=== PATIENT | female | born 1950 | race Caucasian/White ===

== ENCOUNTER 2024-01-28 05:03 | Inpatient (IN) ==
--- NOTE | 2024-01-28 05:19 | Emergency Department Note ---
Impression & Plan Acute hypoxemic respiratory failure, Pneumonia due to 2019-nCoV, Acute hyponatremia, Acute pain of left hip, Hypomagnesemia ED Provider Note NAME: MARYURI CHIN AGE: 73 SEX: F : 1950 ARRIVES VIA: Ambulance INFORMANT: Patient, EMS report ED PROVIDER(S): Reg Maldonado MD CHIEF COMPLAINT: Shortness of breath, cough MEDICAL DECISION MAKING: Patient presents for the above. Patient with coarse sounds throughout. Patient reportedly had a temperature of 106 at home. Patient did have sepsis protocol is initiated along with empiric antibiotics Rocephin and azithromycin in light of the patient's respiratory symptoms. IV was established and blood work was obtained along with a chest x-ray. Patient with complaint of left hip pain so plain x-rays ordered of the left hip as well. Patient was ordered IV fluids and IV Ofirmev. Patient placed on BiPAP at to help given the patient's coarse breath sounds. Patient with a normal white count hemoglobin 11.3 with a normal platelet count. Kidney function is unremarkable hyponatremia and hypokalemia noted. Urine and serum osmolality ordered along with urine electrolytes. Hypomagnesemia ordered and ordered IV 1 g of magnesium. Troponin negative. BioFire positive for COVID. Chest x-ray does show bilateral interstitial changes. Hip x-ray does not show obvious definitive fracture, but could have subtle cortical interruption recommended CT left hip. This was ordered. I did speak with the on-call hospital service Dr. Resendez and the patient was admitted to the medicine service. I did speak with nursing to make him aware of the possible hip fracture and that the patient was not to be ambulatory until this resulted and discussed with inpatient service. Critical Care: I have personally spent 42 minutes of critical care time in direct management of this patient. This includes bedside care, interpretation of diagnostic studies, and testing, discussion with consultants, patient, and family members, and other require inpatient management activities. This 42 minutes is in excess of all separately billable procedures. Discussion w/ other healthcare providers: None Prior /Outside records reviewed: I reviewed part of the PCP note from Olivia Reynoso with family medicine from October 10, 2022. Patient reportedly did have known left-sided hip pain at that time. Patient with known prior history of anxiety depression hypertension hypothyroidism GERD and arthritis of the left hip. Differential diagnosis: Dehydration, UTI, pneumonia, metabolic derangment, electrolyte abnormalities, hypovolemia, anemia, cellulitis among others were considered. Diagnostics, as interpreted by me: ECG: Sinus tachycardia, rate 132, normal intervals, normal axis possible ST depressions in the lateral leads, V6 no rhythm present. Cardiac monitoring: An order was placed for continuous cardiac monitoring. The monitor shows a rate of 123 with tachycardic and regular rhythm. Patient was placed on pulse oximetry Medical decision rules: none Imaging studies: I informally interpreted the patient's chest x-ray does show bilateral interstitial changes with formal report to follow. HPI: Patient presents due to concern for shortness of breath and cough. The patient states that her symptoms began several days ago. Cough is productive. Patient does not have any known history of prior lung disease and is a non- smoker. The patient has had some worsening shortness of breath. Patient reports that she has been taking some Tylenol at home with mild improvement in symptoms. EMS did arrive and noted the patient to sounded very "wet" in the upper lung santiago. They did give her 3 breathing treatments and Solu-Medrol. Patient states that she does feel improved after treatments. Patient denies any chest pains. No abdominal pain. The patient denies any nausea vomiting or diarrhea. The patient states that she did fall several days ago and has had some left-sided hip pain. Patient denies any known sick contacts. PAST MEDICAL HISTORY: Hip arthritis, anxiety, depression, hypertension, hypothyroidism, GERD, hyperlipidemia PAST SURGICAL HISTORY: No pertinent past surgical history SOCIAL HISTORY: Denies tobacco use. Speaks Armenian. HOME MEDICATIONS: See Below ALLERGIES: See Below VITALS: See Below PHYSICAL EXAMINATION: GENERAL: Mildly ill in appearance, clammy. EYE EXAM: Normal conjunctiva. PERRL, no anisocoria and EOM's grossly intact w/o pain. OROPHARYNX: Dry mucus membranes, grossly normal dentition. NECK: Trachea midline, no stridor. Supple, no nuchal rigidity, no adenopathy, non-tender. No signs of meningismus. FROM of the neck with good chin to chest and neck extension. LUNGS: Coarse sounds throughout. Normal chest wall mechanics. HEART: Tachycardic and regular, no MRG. ABDOMEN: Abdomen soft, non-tender, no masses, no rebound or guarding. BACK: No CVA TTP. SKIN: No rashes and no bruising. UPPER EXTREMITIES: Upper extremities are grossly normal. LOWER EXTREMITIES: Grossly normal, no edema. Negative Homans' sign bilaterally. NEURO EXAM: A&O x3, cranial nerves II-XII grossly intact, normal speech, moves all 4 extremities. Past Med/Surg History Problem List (Updated 01/28/24 @ 07:17 by Reg Maldonado MD) Hypomagnesemia (Acute) Acute pain of left hip (Acute) Acute hyponatremia (Acute) Acute hypoxemic respiratory failure (Acute) Pneumonia due to 2019-nCoV (Acute) Social History Smoking Status: Former smoker Tobacco Type: Cigarettes Preferred Language: Armenian Feels Safe at Home: Yes Results & Data (ED) Vital Signs Vital Signs - 24 hr 01/28/24 05:13 01/28/24 05:13 01/28/24 05:13 Temperature 37.1 C Temperature Source Oral Pulse Rate 128 H Pulse Rate [Apical] Respiratory Rate 30 H Respiratory Effort / Characteristics Labored Short of Breath SOB on Exertion Labored Short of Breath SOB on Exertion Respiratory Depth Shallow Shallow Respiratory Pattern Rapid/Shallow Tachypnea Tachypnea Blood Pressure 157/85 H Blood Pressure [Right Arm] Blood Pressure Mean 109 Blood Pressure Mean [Right Arm] Pulse Oximetry 92 92 Oxygen Delivery Method Room Air Room Air Room Air Fraction of Inspired Oxygen Sepsis Recent Fever Within 48 Hours No Sepsis New/Unexplained Change in Mental Status No Sepsis Action Taken by Nursing Physician Notified Pulse Oximetry Post Tiitration 01/28/24 05:13 01/28/24 05:27 01/28/24 05:38 Temperature Temperature Source Pulse Rate 130 H 122 H Pulse Rate [Apical] Respiratory Rate 25 H Respiratory Effort / Characteristics Non-Labored Spontaneous Respiratory Depth Normal Respiratory Pattern Regular Blood Pressure Blood Pressure [Right Arm] Blood Pressure Mean Blood Pressure Mean [Right Arm] Pulse Oximetry 90 95 Oxygen Delivery Method BiPAP Fraction of Inspired Oxygen 30 Sepsis Recent Fever Within 48 Hours Sepsis New/Unexplained Change in Mental Status Sepsis Action Taken by Nursing Pulse Oximetry Post Tiitration 97 01/28/24 06:04 01/28/24 06:37 Temperature Temperature Source Pulse Rate Pulse Rate [Apical] 117 H 119 H Respiratory Rate 38 H 31 H Respiratory Effort / Characteristics Labored SOB on Exertion Respiratory Depth Respiratory Pattern Tachypnea Blood Pressure Blood Pressure [Right Arm] 155/82 H 152/89 H Blood Pressure Mean Blood Pressure Mean [Right Arm] 106 110 Pulse Oximetry 96 95 Oxygen Delivery Method BiPAP BiPAP Fraction of Inspired Oxygen Sepsis Recent Fever Within 48 Hours Sepsis New/Unexplained Change in Mental Status Sepsis Action Taken by Nursing Pulse Oximetry Post Tiitration Home Medications Current Medication List: was personally reviewed by me Laboratory Data Attestation: I reviewed the patient's lab results. 01/28/24 05:14 01/28/24 05:14 Lab Results 01/28/24 01/28/24 Range/Units 05:00 05:14 WBC 9.95 (4.8-10.8) K/ul RBC 3.61 L (4.20-5.40) M/uL Hgb 11.3 L (12.0-16.0) g/dl Hct 32.6 L (37.0-47.0) % MCV 90.3 (80.0-100.0) fL MCH 31.3 (25.0-34.0) pg MCHC 34.7 (32.0-36.0) g/dL RDW Std Deviation 40.6 (36.4-46.3) fL RDW Coeff of Terrence 12.3 (11.5-14.5) % Plt Count 159 (130-400) K/uL MPV 9.0 L (9.4-12.4) fL Immature Gran % (Auto) 0.6 % Neut % (Auto) 77.5 % Lymph % (Auto) 10.6 % Dukes % (Auto) 10.8 % Eos % (Auto) 0.3 % Baso % (Auto) 0.2 % Neut # (Auto) 7.72 H (1.40-6.50) K/uL Lymph # (Auto) 1.05 L (1.20-3.40) K/uL Dukes # (Auto) 1.07 H (0.11-0.59) K/uL Eos # (Auto) 0.03 (0.00-0.50) K/uL Baso # (Auto) 0.02 (0.00-0.20) K/uL Immature Gran # (Auto) 0.06 (0.01-0.20) K/uL PT 11.4 (9.0-12.0) Seconds INR 1.1 (0.9-1.1) APTT 32 H (21-31) Seconds PTT Ratio 1.2 Sodium 127 L (136-145) mmol/L Potassium 3.4 L (3.5-5.1) mmol/L Chloride 94 L (98-107) mmol/L Carbon Dioxide 22 (21-32) mmol/L Anion Gap 11 (3-11) BUN 16 (6-23) mg/dl Creatinine 0.55 L (0.6-1.2) mg/dl Est Cr Clr Drug Dosing 96.3 ml/min eGFR 97.94 BUN/Creatinine Ratio 29.1 H (10-20) Glucose 145 H (70-99(Fasting)) mg/dl Lactate 1.6 (0.4-2.0) mmol/L Calcium 9.2 (8.6-10.3) mg/dl Magnesium 1.2 L (1.7-2.4) mg/dl Total Bilirubin 1.0 (0.2-1.0) mg/dl AST 13 (13-39) U/L ALT 8 (7-52) U/L Alkaline Phosphatase 60 (34-104) U/L Troponin I High Sens 8.5 (0-14) pg/ml Total Protein 7.3 (6.0-8.3) gm/dl Albumin 4.2 (3.4-5.0) gm/dl Globulin 3.1 (2.5-4.0) gm/dl Albumin/Globulin Ratio 1.4 (0.9-2) Procalcitonin 0.17 (0-0.5) ng/ml Adenovirus (PCR) Not Detected (NotDetected) B. pertussis DNA (PCR) Not Detected (NotDetected) B.parapertussis DNA PCR Not Detected (NotDetected) C. pneumoniae DNA (PCR) Not Detected (NotDetected) Coronavirus OC43 (PCR) Not Detected (NotDetected) Coronavirus HKU1 (PCR) Not Detected (NotDetected) Coronavirus 229E (PCR) Not Detected (NotDetected) SARS-CoV-2 (PCR) DETECTED A (NotDetected) Coronavirus NL63 (PCR) Not Detected (NotDetected) Human Metapneumovir PCR Not Detected (NotDetected) Influenza Type A (PCR) Not Detected (NotDetected) Influenza Type B (PCR) Not Detected (NotDetected) M. pneumoniae (PCR) Not Detected (NotDetected) Parainfluenza 1 (PCR) Not Detected (NotDetected) Parainfluenza 2 (PCR) Not Detected (NotDetected) Parainfluenza 3 (PCR) Not Detected (NotDetected) Parainfluenza 4 (PCR) Not Detected (NotDetected) RSV (PCR) Not Detected (NotDetected) Entero/Rhino (PCR) Not Detected (NotDetected) Administered Medications Magnesium Sulfate/Dextrose (Magnesium Sulfate / D5w) 1 gm in 100 mls @ 100 mls/hr IV NOW STA Stop: 01/28/24 07:11 Last Admin: 01/28/24 06:25 Dose: 100 mls/hr Documented By: CRISTIN Discontinued Medications Doxycycline Hyclate (Doxycycline Hyclate 100 Mg Cap) 100 mg PO NOW STA Stop: 01/28/24 05:14 Last Admin: 01/28/24 05:26 Dose: 100 mg Documented By: CRISTIN Sodium Chloride (Nss) 1,000 mls @ 999 mls/hr IV .Q1H1M ONE Stop: 01/28/24 06:13 Last Infusion: 01/28/24 06:39 Dose: Infused Documented By: Admin: 01/28/24 05:25 Dose: 999 mls/hr Documented By: CRISTIN Ceftriaxone Sodium (Rocephin) 2,000 mg in 50 mls @ 100 mls/hr IV NOW STA Stop: 01/28/24 05:42 Last Infusion: 01/28/24 06:24 Dose: Infused Documented By: Admin: 01/28/24 05:51 Dose: 100 mls/hr Documented By: CRISTIN Acetaminophen (Ofirmev) 1,000 mg in 100 mls @ 400 mls/hr IV NOW STA Stop: 01/28/24 05:27 Last Infusion: 01/28/24 05:51 Dose: Infused Documented By: Admin: 01/28/24 05:25 Dose: 400 mls/hr Documented By: CRISTIN Lorazepam (Lorazepam 2 Mg/1 Ml Vial) 0.5 mg IV NOW STA Stop: 01/28/24 05:51 Last Admin: 01/28/24 05:53 Dose: 0.5 mg Documented By: CRISTIN Lorazepam (Lorazepam 1 Mg/1 Ml Syr Ed Inj Use) Confirm Administered Dose 1 mg .ROUTE .STK-MED ONE Stop: 01/28/24 05:52 Last Admin: 01/28/24 05:54 Dose: Not Given Documented By: CRISTIN Imaging Data Radiologist's Impression: Chest X-Ray 01/28/24 05:13 EXAM: XR chest 1V portable CLINICAL HISTORY: SOB JMF TECHNIQUE: An X-ray image of the chest is obtained in 1 AP projection. COMPARISON: No prior studies are available for comparison. FINDINGS: Pulmonary Parenchyma: Diffuse increased vascular marking in both lungs. No evidence of consolidation, collapse, or focal opacities. No pulmonary nodules are identified. No evidence of pleural effusion or pleural thickening. Heart and Mediastinum: Boderline cardiac size, however a definite comment on cardiac size is not possible for AP projection No mediastinal widening or masses. No hilar or mediastinal lymphadenopathy. Bony Thorax: Bony thorax appears intact without fractures or deformities. Soft Tissues: Soft tissues overlying the chest wall are unremarkable. IMPRESSION: 1. Diffuse increased lung vascular marking and prominent troy could be due to pulmonary edema/congestion 2. No acute pleuropulmonary abnormalities are identified. Electronically signed by Roma Nguyen 01-28-2024 06:19 AM Hip/Pelvis X-Ray 01/28/24 05:13 EXAM: XR hip LT 2V w pelvis CLINICAL HISTORY: CHRONIC LEFT HIP PAIN, WORSENING BEST POSSIBLE F TECHNIQUE: X-ray images of the left hip joints and pelvis were obtained in anteroposterior (AP) projection. COMPARISON: No prior studies available for comparison. FINDINGS: Pelvic Bones: Suspected subtle cortical interruption and radiolucency seen in the medial aspect of the left femoral neck. Suspected subtle cortical interruption seen in the medial aspect of left inferior pubic ramus. Diffuse osteopenia. Left Hip Joint: Significant joint space narrowing. Subcortical sclerosis and cortical irregularities. Multiple osteophytes. Degenerative changes of the visualized sacroiliac and symphysis pubis joints. Soft Tissues: Soft tissue edema surrounding the left hip joint. IMPRESSION: 1. Severe left hip osteoarthritis. 2. Possible subtle cortical interruption and radiolucency are noted in the medial aspect of the left femoral neck and left inferior pubic ramus, along with diffuse osteopenia. Raising the possibility of fractures. Recommend CT left hip for better evaluation as clinically needed. 3. Degenerative changes are observed in the sacroiliac and symphysis pubis joints. Disclaimer: A subtle bone abnormality or fracture may not be readily apparent on X-rays, thus clinical correlation and further imaging including follow-up CT, MRI, or follow-up X-rays are advised as needed. Electronically signed by Doni De Souza 01-28-2024 06:28 AM Discharge Plan Visit Data Chief Complaint: Shortness of Breath/Dyspnea Stated Complaint: SHORTNESS OF BREATH ED Provider: Reg Maldonado Discharge Problem: Acute hypoxemic respiratory failure, Pneumonia due to 2019-nCoV, Acute hyponatremia, Acute pain of left hip, Hypomagnesemia Forms Stand Alone Forms: My [facility] Referrals Referrals: Laury Calderon DO [Primary Care Provider] -
[2024-01-28] MEDS: ACETAMINOPHEN 1,000 MG/100 ML VIAL IV STA (05:25)
[2024-01-28] MEDS: SODIUM CHLORIDE 0.9% 1,000 ML IV ONE (05:25)
[2024-01-28] MEDS: DOXYCYCLINE HYCLATE 100 MG CAP PO STA (05:26)
[2024-01-28 05:36] LABS: Basophils # (auto) 0.02 K/uL (0.00-0.20); Basophils % (auto) 0.2 %; Eosinophils # (auto) 0.03 K/uL (0.00-0.50); Eosinophils % (auto) 0.3 %; Hematocrit (blood only) 32.6 % (37.0-47.0); Hemoglobin 11.3 g/dl (12.0-16.0); Immature Granulocytes # (auto) 0.06 K/uL (0.01-0.20); Immature Granulocytes % (auto) 0.6 %; Lymphocytes # (auto) 1.05 K/uL (1.20-3.40); Lymphocytes % (auto) 10.6 %; Mean Corpuscular Hemoglobin 31.3 pg (25.0-34.0); Mean Corpuscular Hgb Conc 34.7 g/dL (32.0-36.0); Mean Corpuscular Volume 90.3 fL (80.0-100.0); Monocytes # (auto) 1.07 K/uL (0.11-0.59); Monocytes % (auto) 10.8 %; Neutrophils # (auto) 7.72 K/uL (1.40-6.50); Neutrophils % (auto) 77.5 %; Platelet Count 159 K/uL (130-400); RDW Coefficient of Variation 12.3 % (11.5-14.5); RDW Standard Deviation 40.6 fL (36.4-46.3); Red Blood Count 3.61 M/uL (4.20-5.40); White Blood Count 9.95 K/ul (4.8-10.8)
[2024-01-28 05:51] LABS: Albumin Globulin Ratio 1.4 (0.9-2); Albumin Level 4.2 gm/dl (3.4-5.0); BUN Creatinine Ratio 29.1 (10-20); Calcium 9.2 mg/dl (8.6-10.3); Creatinine Clr Calc Pharmacy 96.3 ml/min; Globulin 3.1 gm/dl (2.5-4.0); Magnesium 1.2 mg/dl (1.7-2.4); Potassium 3.4 mmol/L (3.5-5.1); Total Protein 7.3 gm/dl (6.0-8.3)
[2024-01-28] MEDS: cefTRIAXone SODIUM 2,000 MG/50 ML BAG IV STA (05:51)
[2024-01-28] MEDS: LORazepam 2 MG/1 ML VIAL IV STA (05:53)
[2024-01-28] MEDS: LORazepam 1 MG/1 ML SYR ED Inj Use ONE (05:54)
[2024-01-28 05:58] LABS: Troponin I High Sensitivity 8.5 pg/ml (0-14)
[2024-01-28 06:17] LABS: INR 1.1 (0.9-1.1); Partial Thromboplastin Ratio 1.2; Partial Thromboplastin Time 32 Seconds (21-31); Prothrombin Time 11.4 Seconds (9.0-12.0)
--- NOTE | 2024-01-28 06:19 | XRay Report ---
EXAM: XR chest 1V portable CLINICAL HISTORY: SOB JMF TECHNIQUE: An X-ray image of the chest is obtained in 1 AP projection. COMPARISON: No prior studies are available for comparison. FINDINGS: Pulmonary Parenchyma: Diffuse increased vascular marking in both lungs. No evidence of consolidation, collapse, or focal opacities. No pulmonary nodules are identified. No evidence of pleural effusion or pleural thickening. Heart and Mediastinum: Boderline cardiac size, however a definite comment on cardiac size is not possible for AP projection No mediastinal widening or masses. No hilar or mediastinal lymphadenopathy. Bony Thorax: Bony thorax appears intact without fractures or deformities. Soft Tissues: Soft tissues overlying the chest wall are unremarkable. IMPRESSION: 1. Diffuse increased lung vascular marking and prominent troy could be due to pulmonary edema/congestion 2. No acute pleuropulmonary abnormalities are identified. Electronically signed by Roma Nguyen 01-28-2024 06:19 AM
[2024-01-28 06:23] LABS: Adenovirus PCR Not Detected (NotDetected); Bordetella parapertussis PCR Not Detected (NotDetected); Bordetella pertussis PCR Not Detected (NotDetected); Chlamydia pneumoniae PCR Not Detected (NotDetected); Coronavirus 229E PCR Not Detected (NotDetected); Coronavirus CoV-2 (COVID19)PCR DETECTED (NotDetected); Coronavirus HKU1 PCR Not Detected (NotDetected); Coronavirus NL63 PCR Not Detected (NotDetected); Coronavirus OC43PCR Not Detected (NotDetected); Human Metapneumovirus PCR Not Detected (NotDetected); Influenza A PCR Not Detected (NotDetected); Influenza B PCR Not Detected (NotDetected); Mycoplasma pneumoniae PCR Not Detected (NotDetected); Parainfluenza Virus 1 PCR Not Detected (NotDetected); Parainfluenza Virus 2 PCR Not Detected (NotDetected); Parainfluenza Virus 3 PCR Not Detected (NotDetected); Parainfluenza Virus 4 PCR Not Detected (NotDetected); Respiratory Syncytial VirusPCR Not Detected (NotDetected); Rhinovirus/Enterovirus PCR Not Detected (NotDetected)
[2024-01-28] MEDS: MAGNESIUM SULFATE / D5W 1 GM/100 ML BAG IV STA (06:25)
--- NOTE | 2024-01-28 06:28 | XRay Report ---
EXAM: XR hip LT 2V w pelvis CLINICAL HISTORY: CHRONIC LEFT HIP PAIN, WORSENING BEST POSSIBLE JMF TECHNIQUE: X-ray images of the left hip joints and pelvis were obtained in anteroposterior (AP) projection. COMPARISON: No prior studies available for comparison. FINDINGS: Pelvic Bones: Suspected subtle cortical interruption and radiolucency seen in the medial aspect of the left femoral neck. Suspected subtle cortical interruption seen in the medial aspect of left inferior pubic ramus. Diffuse osteopenia. Left Hip Joint: Significant joint space narrowing. Subcortical sclerosis and cortical irregularities. Multiple osteophytes. Degenerative changes of the visualized sacroiliac and symphysis pubis joints. Soft Tissues: Soft tissue edema surrounding the left hip joint. IMPRESSION: 1. Severe left hip osteoarthritis. 2. Possible subtle cortical interruption and radiolucency are noted in the medial aspect of the left femoral neck and left inferior pubic ramus, along with diffuse osteopenia. Raising the possibility of fractures. Recommend CT left hip for better evaluation as clinically needed. 3. Degenerative changes are observed in the sacroiliac and symphysis pubis joints. Disclaimer: A subtle bone abnormality or fracture may not be readily apparent on X-rays, thus clinical correlation and further imaging including follow-up CT, MRI, or follow-up X-rays are advised as needed. Electronically signed by Doni De Souza 01-28-2024 06:28 AM
--- NOTE | 2024-01-28 08:53 | CT Scan Report ---
CT hip LT wo con CLINICAL HISTORY: Left hip pain. Evaluate for fracture. COMPARISON STUDY: Left hip radiographs performed earlier today. TECHNIQUE: Axial images of the left hip were obtained without IV contrast. Sagittal and coronal refor mats were viewed. Automated exposure control was utilized for the study. A dose lowering technique w as utilized adhering to the principles of ALARA. FINDINGS: Severe left hip joint space narrowing is noted with extensive subchondral sclerosis, osteop hytosis and cystic change within the acetabulum and the left femoral head. There are no fractures wit hin the left hip. Possible fractures on radiographs were artifactual. No osseous lesions are identifi ed. There is no evidence for avascular necrosis. No acute fractures are identified within visualized portions of the left hemipelvis. No intramuscular hematoma within the left hip is identified. Visuali zed portions of the left hemipelvis demonstrate colonic diverticulosis. IMPRESSION: 1. Severe left hip osteoarthritis with joint space narrowing, osteophytosis, subchondral sclerosis/cy stic change. 2. No fractures within the left hip. The possible fractures on left hip radiographs were artifactual. ACT 112: Negative or not required by law. Electronically signed by: Efrain Boucher M.D. 01/28/2024 8:52 AM
[2024-01-28] MEDS ORDERED: ALBUTEROL 0.083% NEBU SOLN 3 ML VIAL NEB PRN (09:43)
--- NOTE | 2024-01-28 09:46 | History & Physical Report ---
Date of Service January 28, 2024 Assessment & Plan (1) Acute bronchitis due to COVID-19 virus: Plan: As patient has not been persistently hypoxemia, I do not see any indication to start antiviral treatment however I would be just fine continuing with steroid for now. Chest x-ray was reviewed by myself, she may have some scattered findings compatible with bronchitis versus edema but I am not concerned about any consolidation. Continue bronchodilator treatment and Mucinex. No indication for antibiotic treatment for now. (2) Hyponatremia: Plan: This is most likely due to volume deficiency considering that patient has been rapidly breathing and she may have had excessive insensible loss. May gently IV hydrate and monitor serum sodium which was this morning at 132. (3) Hypokalemia: Plan: Potassium was 3.4 and will be replaced. (4) Hypomagnesemia: Plan: Magnesium was 1.2 and will be replaced. (5) Hypertension, essential: Plan: Resume home regimen of losartan 25 mg daily and Toprol-XL 50 mg daily, hold HCTZ as of now. Will monitor blood pressure and decide about resumption of HCTZ later. (6) Hyperlipidemia: Plan: Resume fenofibrate 145 mg daily and Lipitor 40 mg daily. (7) Hypothyroidism, acquired: Plan: Resume Synthroid 50 mcg daily. (8) Depression: Plan: Resume duloxetine 60 mg delayed release tablets and buspirone 15 mg daily. Plan Patient will be admitted for further monitoring and treatment, replace electrolytes persistently especially magnesium and potassium, follow with serum and urine osmolality. History of Present Illness Chief Complaint: Weakness/productive cough and shortness of breath Primary Care Provider: Laury Calderon DO Patient is a 73-year-old female with a history of anxiety/depression, hyperlipidemia, hypothyroidism, hypertension who came to the hospital because of gradually becoming sick after being exposed to several ill relatives. She started developing feeling tired about a week ago but then since 2 to 3 days ago she started having mildly productive cough which did not go away, she did not report having any fever or chills. Eventually she ended up coming to the hospital for further evaluation, she was found to be positive for COVID-19, chest x-ray did not show any significant infiltrate, patient was not hypoxic but she was tachypneic. Patient had multiple electrolyte abnormalities including hy ponatremia, hypomagnesemia and hypokalemia, patient was decided to be admitted for further evaluation and treatment. Home Medications Medication Instructions Recorded Confirmed Type atorvastatin 40 mg tablet 40 mg PO DAILY 01/28/24 History buspirone 15 mg tablet 15 mg PO BID 01/28/24 History duloxetine 60 mg capsule,delayed 60 mg PO DAILY 01/28/24 History release famotidine 10 mg tablet (Heartburn 10 mg PO DIRECTED 01/28/24 History Relief (famotidine)) fenofibrate nanocrystallized 145 145 mg PO DAILY 01/28/24 History mg tablet gabapentin 300 mg capsule 300 mg PO DIRECTED 01/28/24 History hydrochlorothiazide 12.5 mg tablet 12.5 mg PO DAILY 01/28/24 History hydrocodone 7.5 mg-acetaminophen 1 tab PO QID PRN Pain 01/28/24 History 325 mg tablet levothyroxine 50 mcg tablet 50 mcg PO UD 01/28/24 History losartan 25 mg tablet 25 mg PO DAILY 01/28/24 History magnesium oxide 400 mg (241.3 mg 400 mg PO DAILY 01/28/24 History magnesium) tablet metoprolol succinate 50 mg 50 mg PO BID 01/28/24 History tablet,extended release 24 hr oxybutynin chloride 10 mg 10 mg PO DAILY 01/28/24 History tablet,extended release 24 hr Past Med/Surg History Problem List (Updated 01/28/24 @ 09:53 by Taras Adkins MD) Depression Hypothyroidism, acquired Hyperlipidemia Hypertension, essential Acute bronchitis due to COVID-19 virus Hypomagnesemia Hypokalemia Hyponatremia Hypomagnesemia (Acute) Acute pain of left hip (Acute) Acute hyponatremia (Acute) Acute hypoxemic respiratory failure (Acute) Pneumonia due to 2019-nCoV (Acute) Social History Smoking Status: Former smoker Tobacco Type: Cigarettes Preferred Language: Burmese Feels Safe at Home: Yes Review of Systems Review of Systems: Constitutional: No Weight Change, No Fever, No Chills, No Night Sweats, No Fatigue, No Malaise ENT/Mouth: No Hearing Changes, No Ear Pain, No Nasal Congestion, No Sinus Pain, No Hoarseness, No sore throat, No Rhinorrhea, No Swallowing Difficulty Eyes: No Eye Pain, No Swelling, No Redness, No Foreign Body, No Discharge, No Vision Changes Cardiovascular: No Chest Pain, No SOB, No PND, No Dyspnea on Exertion, No Orthopnea, No Claudication, No Edema, No Palpitations Respiratory: Positive for shortness of breath, mildly productive cough Gastrointestinal: No Nausea, No Vomiting, No Diarrhea, No Constipation, No Pain, No Heartburn, No Anorexia, No Dysphagia, No Hematochezia, No Melena, No Flatulence, No Jaundice Genitourinary: No Dysmenorrhea, No DUB, No Dyspareunia, No Dysuria, No Urinary Frequency, No Hematuria, No Urinary Incontinence, No Urgency, No Flank Pain, No Urinary Flow Changes, No Hesitancy Musculoskeletal: No Arthralgias, No Myalgias, No Joint Swelling, No Joint Stiffness, No Back Pain, No Neck Pain, No Injury History Skin: No Skin Lesions, No Pruritis, No Hair Changes, No Breast/Skin Changes, No Nipple Discharge Neuro: No Weakness, No Numbness, No Paresthesias, No Loss of Consciousness, No Syncope, No Dizziness, No Headache, No Coordination Changes, No Recent Falls Psych: No Anxiety/Panic, No Depression, No Insomnia, No Personality Changes, No Delusions, No Rumination, No SI/HI/AH/VH, No Social Issues, No Memory Changes, No Violence/Abuse Hx., No Eating Concerns Heme/Lymph: No Bruising, No Bleeding, No Transfusions History, No Lymphadenopathy Endocrine: No Polyuria, No Polydipsia, No Temperature Intolerance Physical Exam Physical Exam: VITALS: Reviewed. WEIGHT/BMI reviewed. GEN: Healthy appearing, well-developed, NAD, in mild respiratory distress with tachypnea CV: RRR, no m/r/g. LUNGS: Scattered bilateral rhonchi, and crackles ABD: Soft, NT/ND, NBS, no masses or organomegaly. : N/A SKIN: Warm, well perfused. No skin rashes or abnormal lesions. MSK: No deformities, Normal gait. EXT: No clubbing, cyanosis, or edema. NEURO: Ambulating with no limitations. Normal muscle strength and tone. No focal deficits. Results & Data Results & Data Vital Signs (Past 12 Hours) Vital Signs Temp Pulse Pulse Resp BP BP Pulse Ox 01/28/24 08:39 112 H 22 99 01/28/24 08:36 165/86 H 01/28/24 08:21 110 H 18 97 01/28/24 08:09 110 H 18 166/92 H 95 01/28/24 07:36 117 H 26 H 157/105 H 96 01/28/24 07:03 121 H 35 H 142/103 H 95 01/28/24 06:37 119 H 31 H 152/89 H 95 01/28/24 06:04 117 H 38 H 155/82 H 96 01/28/24 05:38 122 H 25 H 95 01/28/24 05:27 90 01/28/24 05:13 130 H 01/28/24 05:13 92 01/28/24 05:13 37.1 C 128 H 30 H 157/85 H 92 01/28/24 05:13 O2 Del Method O2 Flow Rate FiO2 01/28/24 08:39 01/28/24 08:36 01/28/24 08:21 01/28/24 08:09 Oxymask 4 01/28/24 07:36 01/28/24 07:03 01/28/24 06:37 BiPAP 01/28/24 06:04 BiPAP 01/28/24 05:38 30 01/28/24 05:27 BiPAP 01/28/24 05:13 01/28/24 05:13 Room Air 01/28/24 05:13 Room Air 01/28/24 05:13 Room Air Laboratory Results Laboratory Results - last 24 hr 01/28/24 01/28/24 05:00 05:14 WBC 9.95 RBC 3.61 L Hgb 11.3 L Hct 32.6 L MCV 90.3 MCH 31.3 MCHC 34.7 RDW Std Deviation 40.6 RDW Coeff of Terrence 12.3 Plt Count 159 MPV 9.0 L Immature Gran % (Auto) 0.6 Neut % (Auto) 77.5 Lymph % (Auto) 10.6 [place] % (Auto) 10.8 Eos % (Auto) 0.3 Baso % (Auto) 0.2 Neut # (Auto) 7.72 H Lymph # (Auto) 1.05 L [place] # (Auto) 1.07 H Eos # (Auto) 0.03 Baso # (Auto) 0.02 Immature Gran # (Auto) 0.06 PT 11.4 INR 1.1 APTT 32 H PTT Ratio 1.2 Sodium 127 L Potassium 3.4 L Chloride 94 L Carbon Dioxide 22 Anion Gap 11 BUN 16 Creatinine 0.55 L Est Cr Clr Drug Dosing 96.3 eGFR 97.94 BUN/Creatinine Ratio 29.1 H Glucose 145 H Osmolality 266 L Lactate 1.6 Calcium 9.2 Magnesium 1.2 L Total Bilirubin 1.0 AST 13 ALT 8 Alkaline Phosphatase 60 Troponin I High Sens 8.5 Total Protein 7.3 Albumin 4.2 Globulin 3.1 Albumin/Globulin Ratio 1.4 Procalcitonin 0.17 Adenovirus (PCR) Not Detected B. pertussis DNA (PCR) Not Detected B.parapertussis DNA PCR Not Detected C. pneumoniae DNA (PCR) Not Detected Coronavirus OC43 (PCR) Not Detected Coronavirus HKU1 (PCR) Not Detected Coronavirus 229E (PCR) Not Detected SARS-CoV-2 (PCR) DETECTED A Coronavirus NL63 (PCR) Not Detected Human Metapneumovir PCR Not Detected Influenza Type A (PCR) Not Detected Influenza Type B (PCR) Not Detected M. pneumoniae (PCR) Not Detected Parainfluenza 1 (PCR) Not Detected Parainfluenza 2 (PCR) Not Detected Parainfluenza 3 (PCR) Not Detected Parainfluenza 4 (PCR) Not Detected RSV (PCR) Not Detected Entero/Rhino (PCR) Not Detected Diagnostic Findings Chest X-Ray 01/28/24 05:13 EXAM: XR chest 1V portable CLINICAL HISTORY: SOB JMF TECHNIQUE: An X-ray image of the chest is obtained in 1 AP projection. COMPARISON: No prior studies are available for comparison. FINDINGS: Pulmonary Parenchyma: Diffuse increased vascular marking in both lungs. No evidence of consolidation, collapse, or focal opacities. No pulmonary nodules are identified. No evidence of pleural effusion or pleural thickening. Heart and Mediastinum: [place] cardiac size, however a definite comment on cardiac size is not possible for AP projection No mediastinal widening or masses. No hilar or mediastinal lymphadenopathy. Bony Thorax: Bony thorax appears intact without fractures or deformities. Soft Tissues: Soft tissues overlying the chest wall are unremarkable. IMPRESSION: 1. Diffuse increased lung vascular marking and prominent troy could be due to pulmonary edema/congestion 2. No acute pleuropulmonary abnormalities are identified. Electronically signed by Roma Nguyen 01-28-2024 06:19 AM Hip/Pelvis X-Ray 01/28/24 05:13 EXAM: XR hip LT 2V w pelvis CLINICAL HISTORY: CHRONIC LEFT HIP PAIN, WORSENING BEST POSSIBLE JMF TECHNIQUE: X-ray images of the left hip joints and pelvis were obtained in anteroposterior (AP) projection. COMPARISON: No prior studies available for comparison. FINDINGS: Pelvic Bones: Suspected subtle cortical interruption and radiolucency seen in the medial aspect of the left femoral neck. Suspected subtle cortical interruption seen in the medial aspect of left inferior pubic ramus. Diffuse osteopenia. Left Hip Joint: Significant joint space narrowing. Subcortical sclerosis and cortical irregularities. Multiple osteophytes. Degenerative changes of the visualized sacroiliac and symphysis pubis joints. Soft Tissues: Soft tissue edema surrounding the left hip joint. IMPRESSION: 1. Severe left hip osteoarthritis. 2. Possible subtle cortical interruption and radiolucency are noted in the medial aspect of the left femoral neck and left inferior pubic ramus, along with diffuse osteopenia. Raising the possibility of fractures. Recommend CT left hip for better evaluation as clinically needed. 3. Degenerative changes are observed in the sacroiliac and symphysis pubis joints. Disclaimer: A subtle bone abnormality or fracture may not be readily apparent on X-rays, thus clinical correlation and further imaging including follow-up CT, MRI, or follow-up X-rays are advised as needed. Electronically signed by Doni De Souza 01-28-2024 06:[address] 01/28/24 06:47 CT hip LT wo con CLINICAL HISTORY: Left hip pain. Evaluate for fracture. COMPARISON STUDY: Left hip radiographs performed earlier today. TECHNIQUE: Axial images of the left hip were obtained without IV contrast. Sagittal and coronal reformats were viewed. Automated exposure control was utilized for the study. A dose lowering technique was utilized adhering to the principles of ALARA. FINDINGS: Severe left hip joint space narrowing is noted with extensive subchondral sclerosis, osteophytosis and cystic change within the acetabulum and the left femoral head. There are no fractures within the left hip. Possible fractures on radiographs were artifactual. No osseous lesions are identified. There is no evidence for avascular necrosis. No acute fractures are identified within visualized portions of the left hemipelvis. No intramuscular hematoma within the left hip is identified. Visualized portions of the left hemipelvis demonstrate colonic diverticulosis. IMPRESSION: 1. Severe left hip osteoarthritis with joint space narrowing, osteophytosis, subchondral sclerosis/cystic change. 2. No fractures within the left hip. The possible fractures on left hip radiographs were artifactual. ACT 112: Negative or not required by law. Electronically signed by: Efrain Boucher M.D. 01/28/2024 8:52 AM Medications Administered Current Inpatient Medications Albuterol (Albuterol 0.083% Nebu Soln 3 Ml Vial) 2.5 mg NEB Q6H PRN; Protocol PRN Reason: Shortness Of Breath Or Wheezing Stop: 02/27/24 09:42 Guaifenesin (Guaifenesin 600 Mg Tabcr) 600 mg PO Q12 TERESA Stop: 02/27/24 20:59 Sodium Chloride (Nss) 500 mls @ 80 mls/hr IV .Q6H15M TERESA Stop: 01/28/24 16:14 Magnesium Oxide (Magnesium Oxide 400 Mg Tab) 400 mg PO BID TERESA Stop: 02/27/24 20:59 Potassium Chloride (Potassium Chloride Crtab 20 Meq Tabcr) 40 meq PO NOW STA Stop: 01/28/24 09:45 Code Status & VTE Plan Code Status Full code VTE Prophylaxis Plan VTE Prophylaxis will be ordered: Yes (6) Hyperlipidemia Hyperlipidemia type: mixed hyperlipidemia Qualified Code(s): E78.2 - Mixed hyperlipidemia (8) Depression Depression Type: major depressive disorder Major depression recurrence: unspecified whether recurrent Active/Remission status: in remission of unspecified degree Qualified Code(s): F32.5 - Major depressive disorder, single episode, in full remission
[2024-01-28] MEDS ORDERED: DEXAMETHASONE SOD INJ 4 MG/ML VIAL IV STA (09:57)
[2024-01-28] MEDS: METOPROLOL SUCC 50MG EXT REL TAB PO STA (10:19)
[2024-01-28] MEDS: FENOFIBRATE NANOCRYSTALLIZED 145 MG TABLET PO SCH (10:19)
[2024-01-28] MEDS: POTASSIUM CHLORIDE CRTAB 20 MEQ TABCR PO STA (10:19)
[2024-01-28] MEDS: DULoxetine HCL 60 MG CAP PO SCH (10:19)
[2024-01-28] MEDS: LOSARTAN POTASSIUM 25 MG TAB PO SCH (10:20)
[2024-01-28] MEDS: busPIRone 15 MG TAB PO SCH (10:20)
[2024-01-28] MEDS: SODIUM CHLORIDE 0.9% 500 ML IV SCH (10:22)
[2024-01-28] MEDS: dexAMETHasone 6 MG in SYRINGE 0 ML IV SCH (10:59)
--- OUTSIDE RECORDS SUMMARY | 2024-01-28 11:51 | External Medical Summary | Summary of Care ---
Author Name Unknown Organization [facility] Address [address] [place] [address] Phone [phone] Care Team Providers Care Insurance Verification Representative Name Role Phone Unavailable Primary Care Provider Unavailabl e Reason for Visit * Reason Onset Date Comments Medication Refill 12/01/2023 Encounter Details Date Type Department Care Team (Late st Contact Info) Description 12/01/2023 Refill Family Medicine [address] [place] [address] [address] [place] [address] Allergies Active Allergy Reactions Criticality Noted Date Comments 2nd Skin Quick Heal Hives High 10/31/2009 Adhesive Tape Other (Please comment) 01/25/2010 Blisters on back,where tape was Lisinopril Other (Please comment) Low 01/29/2006 cough documented as of this encounter (statuses as of 12/02/2023) Medications Medication Sig Dispensed Refills Start Date End Date Status OMEGA 3 1000 MG PO CAPS twice daily Active EASY TOUCH TEST STRPIndications: DM type 2, goal A1c below 7 check fasting and before supper , 2 days a week Dx: 250.00 50 Strip 5 04/18/2014 Active Cyanocobalamin (VITAMIN B-12) 1000 MCG Tablet Take 1 Tablet by mouth in the morning. Active aspirin enteric coated 81 MG TBEC Take 1 Tablet by mouth in the morning. Active Melatonin 5 MG Oral CapsuleIndicatio ns:Insomnia Take 1 Capsule by mouth at bedtime. 01/19/2020 Active Ferrous Sulfate 325 (65 Fe) MG Oral Tablet (Feosol) 1 tablet every other day (per patient) 07/27/2020 Active Tylenol PM Extra Strength 500-25 MG Oral Tablet (diphenhydrAMINE -APAP (sleep)) Take 1 Tablet by mouth 3 times a day as needed for Itching. Active Triamcinolone Acetonide 0.1 % External Cream (Aristocort) Apply topically to affected area 2 times a day . To affected area. For up to 3 weeks max. 45 g 1 08/23/2021 Active Incontinence Supplies XL adult pull ups. Use 3 times per day, as directed. 90 Each 5 08/24/2021 Active Gabapentin 300 MG Oral Capsule (Neurontin) TAKE ONE CAPSULE BY MOUTH IN THE MORNING, at noon, and before bedtime Strength: 300 mg 270 Capsule 3 02/28/2022 Active busPIRone HCl 15 MG Oral Tablet (Buspar)Indicati ons:Anxiety and depression TAKE ONE TABLET BY MOUTH TWICE DAILY, may take a third tablet periodically as needed 180 Tablet 1 10/10/2022 Active Atorvastatin Calcium 40 MG Oral Tablet (Lipitor)Indicat ions:Dyslipidemi a, goal LDL below 100 Take 1 Tablet by mouth in the morning. 90 Tablet 3 12/31/2022 Active Metoprolol Tartrate 50 MG Oral Tablet (Lopressor) Take 1 Tablet by mouth in the morning and 1 Tablet before bedtime. 180 Tablet 3 01/10/2023 Active Losartan Potassium 25 MG Oral Tablet (Cozaar) Take 1 Tablet by mouth in the morning and 1 Tablet before bedtime. 180 Tablet 3 01/28/2023 Active DULoxetine HCl 60 MG Oral Capsule Delayed Release Particles (Cymbalta) TAKE 1 CAPSULE BY MOUTH EVERY MORNING. DO NOT CUT, CRUSH OR CHEW. 90 Capsule 1 04/02/2023 Active Levothyroxine Sodium 50 MCG Oral Tablet (Levoxyl)Indicat ions:Hypothyroid ism, acquired TAKE ONE TABLET BY MOUTH EVERY DAY AT LEAST 30 MINUTES PRIOR TO BREAKFAST OR OTHER MEDS. 90 Tablet 1 04/16/2023 Active Famotidine 10 MG Oral Tablet (SM Acid Nurse Anesthetist)Indicati ons:Gastroesopha geal reflux disease, unspecified whether esophagitis present take 1 tablet 2 times a day for heartburn 180 Tablet 1 04/23/2023 Active oxyBUTYnin Chloride ER 5 MG Oral Tablet Extended Release 24 Hour (Ditropan XL)Indications:N octurnal enuresis TAKE 1 TABLET BY MOUTH EVERY MORNING. DO NOT CUT, CRUSH OR CHEW. 30 Tablet 5 09/08/2023 Active hydroCHLOROthiaz ruma 25 MG Oral Tablet (Hydrodiuril) Take 1 Tablet by mouth in the morning. 90 Tablet 1 12/02/2023 Active hydroCHLOROthiaz ruma 25 MG Oral Tablet (Hydrodiuril) TAKE ONE TABLET BY MOUTH IN THE MORNING 90 Tablet 1 05/02/2023 4 Discontinue d(Refill) documented as of this encounter (statuses as of 12/02/2023) Active Problems Problem Noted Date Diagnosed Date Moderate aortic stenosis 05/03/2020 Overview: TTE 04/30 Nocturnal enuresis 04/26/2020 Mixed incontinence 01/19/2020 Sleep disorder 01/19/2020 Morbid obesity with BMI of 40.0-44.9, adult 02/10 Vitamin B12 deficiency 10/01/2017 Anxiety and depression 03/28/2017 Controlled substance agreement terminated 2016 Primary osteoarthritis of both knees 09/25/2016 Essential hypertension with goal blood pressure less than 140/90 12/21/2015 Adhesive capsulitis of right shoulder 09/14/2015 Peripheral sensory neuropathy 06/12/2015 DM type 2 causing neurological disease 4 Type 2 diabetes mellitus wit h hemoglobin A1c goal of less than 7.0% 08/25/2012 Overview: ICD-10 update of inactive term Fatty infiltration of liver 05/25/2012 Dyslipidemia, goal LDL below 100 08/20/2011 Hypothyroidism, acquired 02/20/2008 Degeneration of lumbosacral intervertebral disc 10/24/2007 Esophageal reflux GENERAL OSTEOARTHROSIS Heart failure, diastolic, due to HTN Kidney cyst, acquired documented as of this encounter (statuses as of 12/02/2023) Resolved Problems Problem Noted Date Diagnosed Date Resolved Date Morbid obesity due to excess calories 2018 11/08/2020 BMI 40.0-44.9, adult 2018 021 Prediabetes 10/01/2017 04/10/2018 MEDICATION USE AGREEMENT 12/11/201608/2016 Low HDL (under 40) 11/27/2014 9 Anxiety 07/07/2013 07/07/2013 Neuropathy in diabetes 02/25/201302/25 Neuropathy, peripheral 02/25/201306/11 Lumbar degenerative disc disease 10/28/2012 02/25/2013 HTN, goal below 140/90 08/24/201212/20 Degenerative disc disease, cervical 08/15/2012 03/28/2017 CTS (carpal tunnel syndrome) 05/25/2012 04/26/2020 Overview: Had surgery on the right. May need surgery on the left HTN, goal below 130/80 05/25/201208/24 Impaired fasting glucose 08/20/2011 Capsulitis of shoulder 02/07/201112/31 Nonallergic rhinitis 02/07/2011 018 Anxiety state 10/25/2009 03/28/2017 Obesity, morbid (more than 1 00 lbs over ideal weight or BMI > 40) 05/09/2009 07/16/2011 Overview: Per Obesity Taxonomy ICD-10 update of inactive term Dyslipidemia, goal LDL below 160 04/26/2009 08/20/2011 Dyslipidemia, goal to be determined 01/17/2009 04/26/2009 Overview: Per Lipid Taxonomy. HTN, goal below 140/90 12/16/200805/25 Overview: Modified per HTN Taxonomy. Rotator cuff syndrome 08/19/20082017 Fracture of humerus, closed 03/16/2008 05/20/2008 Closed fracture of part of u pper end of humerus 03/15/2008 10/03/2010 Overview: right humerus Spasm of muscle 02/20/2008 02/07/2011 Fracture of metacarpal, closed 01/05/2008 02/07/2011 Migraine without aura 08/18/20072017 Irritable bowel syndrome 01/20/2007 Persistent insomnia 12/23/2006 07/08/19 14 LOC PRIM [id number] 04/21/200609/10 ADVANCE DIRECTIVE INFORMATION 12/05/2004 03/28/2017 Overview: No, Advance Directive brochure given to patient at prior appointment. Allergic rhinitis due to pollen 05/30/2004 03/28/2017 Carpal tunnel syndrome 03/09/200405/11 PLANTAR FIBROMATOSIS 12/22/2002 008 ABN LIVER FUNCTION STUDY 12/22/200202/2007 FX PHALANX, FOOT-CLOSED 10/19/200202/2007 CHONDROMALACIA PATELLAE 10/19/200202/2007 Menopause 06/25/2001 05/12/2007 LUMBAGO 05/12/2007 Mixed dyslipidemia 9 Overview: Per Lipid Taxonomy. OBESITY, UNSPECIFIED 010 Overview: Per Obesity Taxonomy DIVERTICULITIS OF COLON 02/2007 DIVERTICULOSIS OF COLON 02/2007 Carpal tunnel syndrome 05/11 OSTEOARTHROS NOS-PELVIS 07/12 CARVER (nonalcoholic steatohepatitis) 06/12/2015 Overview: FATTY INFILTRATION LIVER HTN, goal below 140/90 12/16 Overview: Modified per HTN Taxonomy. Heart failure, diastolic, ch ronic, etiology unknown 10/07/2008 Abnormal results of liver function studies 05/25/2012 DDD (degenerative disc disease), lumbar 05/14/2011 documented as of this encounter (statuses as of 12/02/2023) Immunizations Name Administration Dates Next Due COVID-19 mRNA, LNP-s, No Pre serve, 2-Dose Series (Moderna) 05/31/2020,05/02/2020 COVID-19, mRNA, LNP-s, PF, B ooster, 100mcg/0.5mg (Moderna) 12/19/2020 Pneumococcal Conjugate Vacc, 13 Valent (Prevnar) 09/24/2017 Pneumococcal Polysaccharide PPV23 (Pneumovax) 10/30/2018,10/26/2008 Season Influenza, Quad, PF, Adjuvanted, 65+ Yrs, IM (FLUAD) 10/20/2019 Seasonal Influenza Vac., MDV , IM, 0.5 mL (Fluzone) 10/19/2013,10/28/2012,01/01/2012,11/10,01/25/2010,10/26/2008,11/11/2007 Seasonal Influenza, PF, 6 M & above, IM , (FluLaval or Fluzone) 2018,12/11/2016 Seasonal Influenza, Quadriva lent Hd (Fluzone Hd) 11/09/2021,11/08/2020 Seasonal Influenza, Quadriva lent, No Preserve, IM 12/21/2015,12/08/2014 Seasonal Influenza, Trivalen t, Adjuvanted, 65+ YRS, PF, (Fluad) 10/30/2018 TDAP (age 10 and older)(Boostrix) 09/24/2017 TDAP, Age 7 and older, IM (Adacel) 01/20/2007 Zoster Vaccine Recombinant (Shingrix) 10/23/2020 ,07/27/2020 documented as of this encounter Social History Tobacco Use Types Packs/Day Years Used Date Smoking Tobacco: Former Cigarettes 0.5 7 0 02/11/1980 - 02/10/1987 Smokeless Tobacco: Never Comments:Pt quit smoking in 1987. Alcohol Use Standard Drinks/Week Comments Yes 0 (1 standard drink = 0.6 oz pure alcohol) rarely. Used to drink 6-7 beers qod until 10 years ago. PHQ-2 Answer Date Recorded PHQ Adult Total Score 0 10/10/2022 Hunger Vital Sign Answer Date Recorded Within the past 12 months, y ou worried that your food would run out before you got the money to buy more. Never true 01/19/20 20 Within the past 12 months, t he food you bought just didn't last and you didn't have money to get more. Never true 01/19/2020 Utilities Answer Date Recorded Do you have trouble paying y our heating, water, or electric bill? (Adult - for ages 18 years and over) Not on file 07/29/2023 Is your family able to pay t he heat, water, or electric bill? (Household - for ages 0-17 years) Not on file 07/29/2023 Does your family have access to good internet? (Household - for ages 0-17 years) Not on file 07/29/2023 Social Connections Answer Date Recorded How often do you feel lonely or isolated from those around you? (Adult - for ages 18 years and over) Not on file 07/29/2023 Sex and Gender Information Value Date Recorded Sex Assigned at Not on file Gender Identity Not on file Sexual Orientation Not on file Job Start Date Occupation Industry Not on file Not on file Not on file documented as of this encounter Miscellaneous Notes * Telephone Encounter - Afua Clarke RN - 12/01/2023 4:51 PM EDTPending Prescriptions: Disp Refills hydroCHLOROthiazide 25 MG Oral Tablet (Hyd*90 Tab*1 Sig: Take 1 Tablet by mouth in the morning. * Telephone Encounter - Afua Clarke RN - 12/01/2023 4:50 PM EDT Pt needs to make an appt to establish. Wendi, please call pt (former [facility]) Providers: med pended * Telephone Encounter - Lor Fagan OSA - 12/01/2023 3:08 PM EDT Did you pend patient's preferred pharmacy and medication before forwarding?yes Pharmacy: [facility] [id number] Pending Prescriptions: Disp Refills hydroCHLOROthiazide 25 MG Oral Tablet (Hy*90 Tab*1 Sig: Take 1 Tablet by mouth in the morning. In the morning.. Last Visit: 10/10/2022 (in office), Visit date not found (telemedicine) Next Visit: Visit date not found If no future appointments scheduled, and last appointment is greater than a year ago, please schedule patient for a follow-up appointment Last date the medication was ordered: 05.02.23 Is this request for a controlled substance?No Urine Drug Screen: Results for orders placed or performed in visit on 12/11/16 OPIOIDS/BENZO COMPLIANCE MONITORING W/INTERP Result Value COMPLIANCE INTERP (NOTE) URINE DRUG SCREEN RESULT Amphetamine NEGATIVE Barbiturates NEGATIVE Benzodiazepines NEGATIVE Cannabinoids NEGATIVE Cocaine Metabolite NEGATIVE METHADONE METABOLITE NEGATIVE Morphine / Codeine NEGATIVE OXYCODONE REFER TO CONFIRMATION RESULT (A) COMMENT THE ABOVE SCREENING RESULTS ARE PRESUMPTIVE AND CAN ONLY BE USED FOR MEDICAL PURPOSES. CONFIRMATORY TESTING IS AVAILABLE UPON REQUEST. Cutoff Concentration URINE VALID INTERP NORMAL CREATININE MIKE 21 NITRITE MIKE 2 pH MIKE 6.7 *Note: Due to a large number of results and/or encounters for the requested time period, some results have not been displayed. A complete set of results can be found in Results Review. Patient Phone Numbers Labs: Lab Results Component Value Date/Time CREAT 0.5 06/27/2022 10:22 AM CREAT 0.6 10/20/2019 10:57 AM POTASSIUM 4.1 06/27/2022 10:22 AM POTASSIUM 4.1 10/20/2019 10:57 AM TSH 3.09 06/27/2022 10:22 AM TSH 2.73 10/20/2019 10:57 AM LDL 82 11/09/2021 10:47 AM LDL 67 10/20/2019 10:57 AM LDL 47 09/30/2017 01:19 PM ALT 30 06/27/2022 10:22 AM ALT 27 10/20/2019 10:57 AM HGBA1C 6.6 (H) 06/27/2022 10:22 AM HGBA1C 5.9 (H) 10/20/2019 10:57 AM documented in this encounter Plan of Treatment Health Maintenance Due Date Last Done Comments Cologuard 1997 Sigmoidoscopy 1997 Fecal Occult Blood Test 04/02/2013 04/02/2012, 10/06 Colonoscopy 07/07/2019 07/06/2009 Colorectal Cancer Screening 07/07/2019 Albumin/Creatinine Ratio 11/09/2022 022, 11/08/2020, 10/20/2019, Additional history exists Diabetic Foot Exam 11/09/2022 11/09/2021, 0 04/26/2020, 10/30/2018, Additional history exists HbA1c 12/28/2022 06/27/2022, 10/13, 04/13/2021, Additional history exists Mammogram 01/22/2023 01/22/2022, 01/10, 01/14/2022, Additional history exists Diabetic Eye Exam 05/30/2023 05/29/2022, , 01/16/2015, Additional history exists GFR 06/28/2023 06/27/2022, 03/0 05/2021, 11/08/2020, Additional history exists TSH 06/28/2023 06/27/2022, 03/0 05/2021, 04/26/2020, Additional history exists Depression Monitoring 10/11/2023 10/10/2022 COVID-19 Vaccine ( season) 2023 12/19/2020, 05/31/2020, 05/02/2020 Influenza Vaccine (FLU shot) (#1) 2023 11/09/2021, 11/08/2020, 10/20/2019, Additional history exists Lipid Panel 11/09/2026 11/09/2021, 10/12, 10/20/2019, Additional history exists DTap/Tdap Vaccines (3 - Td or Tdap) 09/25/2027 09/24/2017, 01/20/2007 DXA Scan 12/19/2029 12/19/2022 Pneumococcal Vaccine: 65+ Years Completed 10/30/2018, 09/24/2017, 10/26/2008 Zoster Vaccines Completed 10/23/2020, 07/27/2020 HPV (Gardasil) Vaccine Aged Out No lo nger eligible based on patient's age to complete this topic Hepatitis B Vaccine Aged Out No longe r eligible based on patient's age to complete this topic MENINGOCOCCAL (MENACTRA/MENVEO) Aged Out No longer eligible based on patient's age to complete this topic documented as of this encounter Medical Devices Implanted Type Area Solar Energy System Installer Device Identifier Shelf Expiration Date Model / Serial / Lot Lens Intraoc 19.5 - [id number] - [id number] Implanted:Qty: 1 on 09/26/2020 by Jm Aguirre MD at OR [facility] Right: Eye [employer] 02/09/2025 [id number] / [id number] / [id number] Lens Intraoc 20.0 - [id number] - [id number] Implanted:Qty: 1 on 10/10/2020 by Jm Aguirre MD at OR [facility] Left: Eye [employer] 07/10/2025 [id number] / [id number] / [id number] documented as of this encounter
--- OUTSIDE RECORDS SUMMARY | 2024-01-28 11:51 | External Medical Summary | Summary of Care ---
Author Name Unknown Organization [facility] Address [address] [place] [address] Phone [phone] Care Team Providers Care Scientific Informatics Project Leader Name Role Phone Laury Calderon DO Primary Care Provider Reason for Visit * Reason Onset Date Comments Advice 09/26/2023 Encounter Details Date Type Department Care Team (Late st Contact Info) Description 09/26/2023 Telephone Family Medicine [address] [address] Laury Calderon DO [address] [place], [place] [address] [address] Advice Allergies Active Allergy Reactions Criticality Noted Date Comments 2nd Skin Quick Heal Hives High 10/31/2009 Adhesive Tape Other (Please comment) 01/25/2010 Blisters on back,where tape was Lisinopril Other (Please comment) Low 01/29/2006 cough documented as of this encounter (statuses as of 10/08/2023) Medications Medication Sig Dispensed Refills Start Date End Date Status OMEGA 3 1000 MG PO CAPS twice daily Active EASY TOUCH TEST STRPIndications:DM type 2, goal A1c below 7 check fasting and before supper , 2 days a week Dx: 250.00 50 Strip 5 04/18/2014 Active Cyanocobalamin (VITAMIN B-12) 1000 MCG Tablet Take 1 Tablet by mouth in the morning. Active aspirin enteric coated 81 MG TBEC Take 1 Tablet by mouth in the morning. Active Melatonin 5 MG Oral CapsuleIndications :Insomnia Take 1 Capsule by mouth at bedtime. 01/19/2020 Active Ferrous Sulfate 325 (65 Fe) MG Oral Tablet (Feosol) 1 tablet every other day (per patient) 07/27/2020 Active Tylenol PM Extra Strength 500-25 MG Oral Tablet (diphenhydrAMINE-A PAP (sleep)) Take 1 Tablet by mouth 3 [...] Active busPIRone HCl 15 MG Oral Tablet (Buspar)Indication s:Anxiety and depression TAKE ONE TABLET BY MOUTH TWICE DAILY, may take a third tablet periodically as needed 180 Tablet 1 10/10/2022 Active Atorvastatin Calcium 40 MG Oral Tablet (Lipitor)Indicatio ns:Dyslipidemia, goal LDL below 100 Take 1 Tablet [...] Active Levothyroxine Sodium 50 MCG Oral Tablet (Levoxyl)Indicatio ns:Hypothyroidism, acquired TAKE ONE TABLET BY MOUTH EVERY DAY AT LEAST 30 MINUTES PRIOR TO BREAKFAST OR OTHER MEDS. 90 Tablet 1 04/16/2023 Active Famotidine 10 MG Oral Tablet (SM Acid Front Desk Manager)Indication s:Gastroesophageal reflux disease, unspecified whether esophagitis present take 1 tablet 2 times a day for heartburn 180 Tablet 1 04/23/2023 Active hydroCHLOROthiazid e 25 MG Oral Tablet (Hydrodiuril) TAKE ONE TABLET BY MOUTH IN THE MORNING 90 Tablet 1 05/02/2023 Active oxyBUTYnin Chloride ER 5 MG Oral Tablet Extended Release 24 Hour (Ditropan XL)Indications:Noc turnal enuresis TAKE 1 TABLET BY MOUTH EVERY MORNING. DO NOT CUT, CRUSH OR CHEW. 30 Tablet 5 09/08/2023 Active documented as of this encounter (statuses as of 10/08/2023) Active Problems Problem Noted Date Diagnosed Date [...] as of this encounter (statuses as of 10/08/2023) Resolved Problems Problem Noted Date Diagnosed Date [...] Persistent insomnia 12/23/2006 07/08/19 14 LOC PRIM [id number] 04/21/200609/10 ADVANCE DIRECTIVE INFORMATION 12/05/2004 03/28/2017 Overview: No, Advance Directive brochure given to patient at prior appointment. Allergic rhinitis due to pollen 05/30/2004 03/28/2017 Carpal tunnel syndrome 03/09/200405/11 PLANTAR FIBROMATOSIS 12/22/2002 008 ABN LIVER FUNCTION STUDY 12/22/200202/2007 FX PHALANX, FOOT-CLOSED 10/19/20020 02/2007 CHONDROMALACIA PATELLAE 10/19/200202/2007 Menopause 06/25/2001 05/12/2007 LUMBAGO [...] as of this encounter (statuses as of 10/08/2023) Immunizations Name Administration Dates Next Due COVID-19 mRNA, LNP-s, No Pre serve, 2-Dose Series (Moderna) 05/31/2020,05/02/2020 COVID-19, mRNA, LNP-s, PF, B ooster, 100mcg/0.5mg (Moderna) 12/19/2020 Pneumococcal Conjugate Vacc, 13 Valent (Prevnar) 09/24/2017 Pneumococcal Polysaccharide PPV23 (Pneumovax) 10/30/2018,10/26/2008 Season Influenza, Quad, PF, Adjuvanted, 65+ Yrs, IM (FLUAD) 10/20/2019 Seasonal Influenza, PF, 6 M & above, IM , (FluLaval or Fluzone) 2018,12/11/2016 Seasonal Influenza, Quadriva lent Hd (Fluzone Hd) 11/09/2021,11/08/2020 Seasonal Influenza, Quadriva lent, No Preserve, IM 12/21/2015,12/08/2014 Seasonal Influenza, Split, I IV3, With Preserve, Inj 10/19/2013,10/28/2012,01/01/2012,11/10,01/25/2010,10/26/2008,11/11/2007 Seasonal Influenza, Trivalen t, Adjuvanted, 65+ yrs 10/30/2018 TDAP (age 10 and older)(Boostrix) 09/24/2017 [...] encounter Miscellaneous Notes * Telephone Encounter - Marcelina Martines LPN - 10/08/2023 2:07 PM EDT I tried to call pt- no answer, number is no longer in service. * Telephone Encounter - Laury Calderon DO - 10/08/2023 1:05 PM EDT Please notify pt that her incontinence supplies orders need to come from the [facility]. * Telephone Encounter - Rina Mustafa OSA - 10/08/2023 11:18 AM EDT I spoke to Ilda. She said she is going to the [facility] now because of us not taking her insurance. * Telephone Encounter - Marcelina Martines LPN - 10/02/2023 10:50 AM EDT Pt has not been seen in over a year. Needs appt. Please try to schedule. * Telephone Encounter - Jaci Webber LPN - 09/26/2023 8:38 AM EDT Billie from [facility] calling to check on the status of physician order form for incontinence supplies faxed on 09/02. Advised to refax to [phone]. She verbalized understanding. documented in this encounter Plan of Treatment Health Maintenance Due Date Last Done Comments Cologuard 1997 Sigmoidoscopy 1997 Fecal Occult Blood Test 04/02/2013 04/02/2012, 10/06 Colonoscopy 07/07/2019 07/06/2009 Colorectal Cancer Screening 07/07/2019 COVID-19 Vaccine ( season) 2022 12/19/2020, 05/31/2020, 05/02/2020 Albumin/Creatinine Ratio 11/09/2022 022, 11/08/2020, 10/20/2019, Additional [...] Additional history exists Depression Monitoring 10/11/2023 10/10/2022 Influenza Vaccine (FLU shot) (#1) 2023 11/09/2021, [...] this encounter Medical Devices Implanted Type Area Flexographic Press Helper Device Identifier Shelf Expiration Date Model / Serial / Lot Lens Intraoc 19.5 - [id number] - [id number] Implanted:Qty: 1 on 09/26/2020 by Jm Aguirre MD at OR [facility] Right: Eye [employer] 02/09/2025 [id number] / [id number] / [id number] Lens Intraoc 20.0 - [id number] - [id number] Implanted:Qty: 1 on 10/10/2020 by Jm Aguirre MD at OR [facility] Left: Eye [employer]OM[employer] 07/10/2025 [id number] / [id number] / [id number] documented as of this encounter Care Teams Scientific Informatics Project Leader Relationship Specialty Start Date End Date Laury Calderon DO [address] [place] [address] [place] [phone] PCP - General Internal Medicine 03/28/17 10/07/23 documented as of this encounter
--- OUTSIDE RECORDS SUMMARY | 2024-01-28 11:51 | External Medical Summary | Summary of Care ---
Author Name Unknown Organization [facility] Address [address] [place] [address] Phone [phone] Care Team Providers Care History Tutor Name Role Phone Laury Calderon DO Primary Care Provider Reason for Visit * Reason Onset Date Comments Advice 09/26/2023 Encounter Details Date Type Department Care Team (Late st Contact Info) Description 09/26/2023 Telephone Family Medicine [address] [address] Laury Calderon DO [address] [place], [place] [address] [address] Advice Allergies Active Allergy Reactions Criticality Noted Date Comments 2nd Skin Quick Heal Hives High 10/31/2009 Adhesive Tape Other (Please comment) 01/25/2010 Blisters on back,where tape was Lisinopril Other (Please comment) Low 01/29/2006 cough documented as of this encounter (statuses as of 10/09/2023) Medications Medication Sig Dispensed Refills Start Date [...] Famotidine 10 MG Oral Tablet (SM Acid Actuary Clerk)Indication s:Gastroesophageal reflux disease, unspecified whether esophagitis present [...] as of this encounter (statuses as of 10/09/2023) Active Problems Problem Noted Date Diagnosed Date [...] as of this encounter (statuses as of 10/09/2023) Resolved Problems Problem Noted Date Diagnosed Date [...] Persistent insomnia 12/23/2006 07/08/19 14 LOC PRIM [id number] 04/21/200609/10 ADVANCE DIRECTIVE INFORMATION 12/05/2004 03/28/2017 Overview: [...] as of this encounter (statuses as of 10/09/2023) Immunizations Name Administration Dates Next Due COVID-19 [...] Preserve, IM 12/21/2015,12/08/2014 Seasonal Influenza, Trivalen t, (IIV3), with Preserv, (Fluzone) 10/19/2013,10/28/2012,01/01/2012,11/10,01/25/2010,10/26/2008,11/11/2007 Seasonal Influenza, Trivalen t, Adjuvanted, 65+ YRS, [...] supplies orders need to come from the [facility]. * Telephone Encounter - Rina Mustafa OSA - 10/08/2023 11:18 AM EDT I spoke to Ilda. She said she is going to the [facility] now because of us not taking her [...] faxed on 09/02. Advised to refax to [phone]. She verbalized understanding. documented in this encounter [...] this encounter Medical Devices Implanted Type Area Plisse Machine Operator Device Identifier Shelf Expiration Date Model / Serial / Lot Lens Intraoc 19.5 - [id number] - [id number] Implanted:Qty: 1 on 09/26/2020 by Jm Aguirre MD at OR [facility] Right: Eye [employer]OM[employer] 02/09/2025 [id number] / [id number] / [id number] Lens Intraoc 20.0 - [id number] - [id number] Implanted:Qty: 1 on 10/10/2020 by Jm Aguirre MD at OR [facility] Left: Eye BAUSCH & LOMB 07/10/2025 [id number] / [id number] / [id number] documented as of this encounter Care Teams History Tutor Relationship Specialty Start Date End Date Laury Calderon DO [address] [place] [address] LESL[place] Bullock [phone] PCP - General Internal Medicine 03/28/17 10/07/23 documented as of this encounter
--- OUTSIDE RECORDS SUMMARY | 2024-01-28 11:51 | External Medical Summary | Summary of Care ---
Author Name Unknown Organization [facility] Address [address] [place] [address] Phone [phone] Care Team Providers Care Spray Booth Operator Name Role Phone Laury Calderon DO Primary Care Provider Reason for Visit * Reason Onset Date Comments Medication Refill 09/08/2023 Encounter Details Date Type Department Care Team (Late st Contact Info) Description 09/08/2023 Refill Family Medicine [address] [address] Laury Calderon DO [address] [place], [place] [address] spence [address] Nocturnal enuresis Allergies Active Allergy Reactions Criticality Noted Date Comments 2nd Skin Quick Heal Hives High 10/31/2009 Adhesive Tape Other (Please comment) 01/25/2010 Blisters on back,where tape was Lisinopril Other (Please comment) Low 01/29/2006 cough documented as of this encounter (statuses as of 09/08/2023) Medications Medication Sig Dispensed Refills Start Date [...] Famotidine 10 MG Oral Tablet (SM Acid Soda Worker)Indicati ons:Gastroesopha geal reflux disease, unspecified whether esophagitis present take 1 tablet 2 times a day for heartburn 180 Tablet 1 04/23/2023 Active hydroCHLOROthiaz ruma 25 MG Oral Tablet (Hydrodiuril) TAKE ONE TABLET BY MOUTH IN THE MORNING 90 Tablet 1 05/02/2023 Active oxyBUTYnin Chloride ER 5 MG Oral Tablet Extended Release 24 Hour (Ditropan XL)Indications:N octurnal enuresis TAKE 1 TABLET BY MOUTH EVERY MORNING. DO NOT CUT, CRUSH OR CHEW. 30 Tablet 5 09/08/2023 Active oxyBUTYnin Chloride ER 5 MG Oral Tablet Extended Release 24 Hour (Ditropan XL)Indications:N octurnal enuresis TAKE 1 TABLET BY MOUTH EVERY MORNING. DO NOT CUT, CRUSH OR CHEW. 30 Tablet 5 12/18/2022 Discontinue d(Refill) documented as of this encounter (statuses as of 09/08/2023) Active Problems Problem Noted Date Diagnosed Date [...] as of this encounter (statuses as of 09/08/2023) Resolved Problems Problem Noted Date Diagnosed Date [...] Persistent insomnia 12/23/2006 07/08/19 14 LOC PRIM [id number] 04/21/200609/10 ADVANCE DIRECTIVE INFORMATION 12/05/2004 03/28/2017 Overview: [...] as of this encounter (statuses as of 09/08/2023) Immunizations Name Administration Dates Next Due COVID-19 [...] encounter Miscellaneous Notes * Telephone Encounter - Mari Pimentel MD - 09/08/2023 2:32 PM EDTSigned Prescriptions: Disp Refills oxyBUTYnin Chloride ER 5 MG Oral Tablet Ex*30 Tab*5 Sig: TAKE 1 TABLET BY MOUTH EVERY MORNING. DO NOT CUT, CRUSH OR CHEW. Authorizing Provider: MARI PIMENTEL * Telephone Encounter - Afua Clarke RN - 09/08/2023 1:51 PM EDTPending Prescriptions: Disp Refills oxyBUTYnin Chloride ER 5 MG Oral Tablet Ex*30 Tab*5 Sig: TAKE 1 TABLET BY MOUTH EVERY MORNING. DO NOT CUT, CRUSH OR CHEW. * Telephone Encounter - Wendy Albarran OSA - 09/08/2023 1:47 PM EDT Did you pend patient's preferred pharmacy and medication before forwarding?no Pharmacy: [id number] [address] [facility] Pending Prescriptions: Disp Refills oxyBUTYnin Chloride ER 5 MG Oral Tablet E*30 Tab*5 Last Visit: 10/10/2022 (in office), Visit date not found (telemedicine) Next Visit: Visit date not found If no future appointments scheduled, and last appointment is greater than a year ago, please schedule patient for a follow-up appointment Last date the medication was ordered: 12.18.2022 Is this request for a controlled substance?No [...] 10:22 AM TSH 2.73 10/20/2019 10:57 AM LDLCALC 47 09/30/2017 01:19 PM LDLDIRECT 82 11/09/2021 10:47 AM LDLDIRECT 67 10/20/2019 10:57 AM LDLDIRECT 157 (H) 12/31/2011 07:40 AM ALT 30 06/27/2022 10:22 AM ALT 27 [...] 11/09/2026 11/09/2021, 10/12, 10/20/2019, Additional history exists DTaP,Tdap,and Td Vaccines (3 - Td or Tdap) 09/25/2027 09/24/2017, 01/20/2007 DXA Scan 12/19/2029 12/19/2022 *BASELINE EKG FOR HTN Completed 01/09/2015 , 08/20/2011, 10/03/2010 Pneumococcal Vaccine: 65+ Years Completed 10/30/2018, 09/24/2017, [...] this encounter Medical Devices Implanted Type Area Director Of Undergraduate Admissions Device Identifier Shelf Expiration Date Model / Serial / Lot Lens Intraoc 19.5 - [id number] - [id number] Implanted:Qty: 1 on 09/26/2020 by Jm Aguirre MD at OR [facility] Right: Eye BAUSCH & LOMB 02/09/2025 [id number] / [id number] / [id number] Lens Intraoc 20.0 - [id number] - [id number] Implanted:Qty: 1 on 10/10/2020 by Jm Aguirre MD at OR [facility] Left: Eye BAUSCH & LOMB 07/10/2025 [id number] / [id number] / [id number] documented as of this encounter Visit Diagnoses Diagnosis Nocturnal enuresis documented in this encounter Care Teams Spray Booth Operator Relationship Specialty Start Date End Date Laury Calderon DO [address] [place] [address] [place] [address] PCP - General Internal Medicine 03/28/17 documented as of this encounter
--- OUTSIDE RECORDS SUMMARY | 2024-01-28 11:51 | External Medical Summary | Summary of Care ---
Author Name Unknown Organization [facility] Address [address] [place] [address] Phone [phone] Care Team Providers Care Signal Operator Technical Name Role Phone Laury Calderon DO Primary Care Provider Reason for Visit * Reason Onset Date Comments Advice 09/26/2023 Encounter Details Date Type Department Care Team (Late st Contact Info) Description 09/26/2023 Telephone Family Medicine [address] [address] Laury Calderon DO [address] [place], [place] [address] [address] Advice Allergies Active Allergy Reactions Criticality [...] Famotidine 10 MG Oral Tablet (SM Acid Yarn Cleaner)Indication s:Gastroesophageal reflux disease, unspecified whether esophagitis present [...] Persistent insomnia 12/23/2006 07/08/19 14 LOC PRIM [id number] 04/21/200609/10 ADVANCE DIRECTIVE INFORMATION 12/05/2004 03/28/2017 Overview: [...] Trivalen t, (IIV3), with Preserv, (Fluzone) 10/19/2013,10/28/2012,01/01/2012,11/10,01/25/2010,10/26/2008,11/11/2007 ,12/05/2004 Seasonal Influenza, Trivalen t, Adjuvanted, 65+ YRS, [...] Telephone Encounter - Afua Clarke RN - 10/09/2023 3:51 PM EDT Home care delivered was contacted about * Telephone Encounter - Marcelina Martines LPN - 10/08/2023 2:07 PM EDT I tried to call pt- no answer, number is no longer in service. * Telephone Encounter - Laury Calderon DO - 10/08/2023 1:05 PM EDT Please notify pt that her incontinence supplies orders need to come from the [facility]. * Telephone Encounter - Rina Mustafa OSA - 10/08/2023 11:18 AM EDT I spoke to Ilda. She said she is going to the [facility] now because of us not taking [...] faxed on 09/02. Advised to refax to [phone]. She verbalized understanding. documented in this encounter [...] this encounter Medical Devices Implanted Type Area Mergers And Acquisitions Banker Device Identifier Shelf Expiration Date Model / Serial / Lot Lens Intraoc 19.5 - [id number] - [id number] Implanted:Qty: 1 on 09/26/2020 by Jm Aguirre MD at OR [facility] Right: Eye BAUSCH & LOMB 02/09/2025 [id number] / [id number] / [id number] Lens Intraoc 20.0 - [id number] - [id number] Implanted:Qty: 1 on 10/10/2020 by Jm Aguirre MD at [facility] Left: Eye BAUSCH & LOMB 07/10/2025 [id number] / [id number] / [id number] documented as of this encounter Care Teams Signal Operator Technical Relationship Specialty Start Date End Date Laury Calderon DO [address] [place] [address] [place] [address] PCP - General Internal Medicine 03/28/17 10/07/23 documented as of this encounter
--- OUTSIDE RECORDS SUMMARY | 2024-01-28 11:51 | External Medical Summary | Summary of Care ---
Author Name Unknown Organization [facility] Address [address] [place] [address] Phone [phone] Care Team Providers Care Geographic Information Systems Engineer Name Role Phone Unavailable Primary Care Provider Unavailabl e Reason for Visit * Reason Onset Date Comments Medication Refill 11/04/2023 Encounter Details Date Type Department Care Team (Late st Contact Info) Description 11/04/2023 Refill Family Medicine [address] [place] [address] [address] [place] [address] Allergies Active Allergy Reactions Criticality Noted Date Comments 2nd Skin Quick Heal Hives High 10/31/2009 Adhesive Tape Other (Please comment) 01/25/2010 Blisters on back,where tape was Lisinopril Other (Please comment) Low 01/29/2006 cough documented as of this encounter (statuses as of 11/04/2023) Medications Medication Sig Dispensed Refills Start Date [...] Famotidine 10 MG Oral Tablet (SM Acid Preparation Supervisor Canning)Indication s:Gastroesophageal reflux disease, unspecified whether esophagitis present [...] as of this encounter (statuses as of 11/04/2023) Active Problems Problem Noted Date Diagnosed Date [...] as of this encounter (statuses as of 11/04/2023) Resolved Problems Problem Noted Date Diagnosed Date [...] Persistent insomnia 12/23/2006 07/08/19 14 LOC PRIM [id number] 04/21/200609/10 ADVANCE DIRECTIVE INFORMATION 12/05/2004 03/28/2017 Overview: [...] as of this encounter (statuses as of 11/04/2023) Immunizations Name Administration Dates Next Due COVID-19 [...] encounter Miscellaneous Notes * Telephone Encounter - Judi Gilliam CPhT - 11/04/2023 12:37 PM EDT EC calling for Torsemide, advised patient is not on that med she is on HCTZ. EC will check prescriptions and call us back. I advised that a 90 day refill was picked up in August. Thank you, Judi Gilliam CPhT [facility] 11/04/2023,12:39 PM documented in this encounter Plan of Treatment [...] this encounter Medical Devices Implanted Type Area Tow Truck Driver Device Identifier Shelf Expiration Date Model / Serial / Lot Lens Intraoc 19.5 - [id number] - [id number] Implanted:Qty: 1 on 09/26/2020 by Jm Aguirre MD at OR [facility] Right: Eye BAUSCH & LOMB 02/09/2025 [id number] / [id number] / [id number] Lens Intraoc 20.0 - [id number] - [id number] Implanted:Qty: 1 on 10/10/2020 by Jm Aguirre MD at OR [facility] Left: Eye BAUSCH & LOMB 07/10/2025 [id number] / [id number] / [id number] documented as of this encounter
[2024-01-28 12:39] LABS: Appearance Urine Clear (Clear); Bacteria Urine Automated 3+ (None Seen); Bilirubin Urine Negative (Negative); Blood Urine 1+ (Negative); Cast Urine Automated 0-2 /lpf (0-2); Color Urine Yellow; Epithelial Cell Urine Auto 0-2 /hpf (0-2); Glucose Urine UA Negative (Negative); Ketones Urine Negative (Negative); Leukocyte Esterase Urine Negative (Negative); Nitrite Urine Positive (Negative); Protein Urine Negative (Negative); RBC Urine Automated 0-2 /hpf (0-2); Specific Gravity Urine 1.011 (1.000-1.030); Urobilinogen Urine Negative (Negative); WBC Urine Automated 0-5 /hpf (0-5)
[2024-01-28 12:48] LABS: Urine Potassium 25.1 mmol/L
[2024-01-28] MEDS ORDERED: ACETAMINOPHEN 325 MG TAB PO PRN (13:34)
[2024-01-28] MEDS ORDERED: ONDANSETRON INJ 2 MG/ML 2 ML VIAL IV PRN (13:34)
[2024-01-28] MEDS ORDERED: MAGNESIUM HYDROXIDE SUSP 30 ML UDC PO PRN (13:34)
[2024-01-28] MEDS: ENOXAPARIN INJ 40 MG/0.4 ML SYR SQ SCH (16:28)
[2024-01-28] MEDS: MAGNESIUM OXIDE 400 MG TAB PO SCH (20:51)
[2024-01-28] MEDS: guaiFENesin 600 MG TABCR PO SCH (20:51)
[2024-01-28] MEDS: ATORVASTATIN 40 MG TAB PO SCH (20:52)
[2024-01-29] MEDS: LEVOTHYROXINE SODIUM 50 MCG TABLET PO SCH (05:27)
[2024-01-29 06:15] LABS: Hematocrit (blood only) 31.2 % (37.0-47.0); Hemoglobin 10.5 g/dl (12.0-16.0); Mean Corpuscular Hemoglobin 31.4 pg (25.0-34.0); Mean Corpuscular Hgb Conc 33.7 g/dL (32.0-36.0); Mean Corpuscular Volume 93.4 fL (80.0-100.0); Mean Platelet Volume 9.1 fL (9.4-12.4); Platelet Count 186 K/uL (130-400); RDW Coefficient of Variation 12.2 % (11.5-14.5); RDW Standard Deviation 41.9 fL (36.4-46.3); Red Blood Count 3.34 M/uL (4.20-5.40); White Blood Count 11.65 K/ul (4.8-10.8)
[2024-01-29 06:34] LABS: BUN Creatinine Ratio 35.6 (10-20); Calcium 9.1 mg/dl (8.6-10.3); Creatinine Clr Calc Pharmacy 116.7 ml/min; Magnesium 1.7 mg/dl (1.7-2.4); Potassium 3.9 mmol/L (3.5-5.1)
--- NOTE | 2024-01-29 08:45 | Hospitalist Progress Note ---
Date of Service January 29, 2024 Assessment & Plan (1) Acute bronchitis due to COVID-19 virus: Plan: Patient is clinically improving, continue with total of 10 days of Decadron, continue with mucolytics. Observing another day and possibly discharging tomorrow home. (2) Hyponatremia: Plan: This is most likely due to volume deficiency considering that patient has been rapidly breathing and she may have had excessive insensible loss. Serum sodium improved to 135 Will we will continue oral hydration. (3) Hypokalemia: Plan: Replaced and resolved, potassium today 3.9. (4) Hypomagnesemia: Plan: Replaced and resolved, magnesium is 1.7.. (5) Hypertension, essential: Plan: Blood pressure is controlled, continue losartan 25 mg daily and Toprol-XL 50 mg daily, restart HCTZ at discharge. (6) Hyperlipidemia: Plan: Continue fenofibrate 145 mg daily and Lipitor 40 mg daily. (7) Hypothyroidism, acquired: Plan: Continue Synthroid 50 mcg daily. (8) Depression: Plan: Continue duloxetine 60 mg delayed release tablets and buspirone 15 mg daily. Plan Recheck electrolyte panel tomorrow and possible discharge home tomorrow. Admission and Anticipated Discharge Date Admission Date: January 28, 2024 Subjective Patient is a 73-year-old female with a history of anxiety/depression, hyperlipidemia, hypothyroidism, hypertension who came to the hospital because of gradually becoming sick after being exposed to several ill relatives. She started developing feeling tired about a week ago but then since 2 to 3 days ago she started having mildly productive cough which did not go away, she did not report having any fever or chills. Eventually she ended up coming to the hospital for further evaluation, she was found to be positive for COVID-19, chest x-ray did not show any significant infiltrate, patient was not hypoxic but she was tachypneic. Patient had multiple electrolyte abnormalities including hyponatremia, hypomagnesemia and hypokalemia, patient was decided to be admitted for further evaluation and treatment. Patient was treated with Decadron, electrolytes were replaced and patient was IV hydrated, blood work today was reviewed and patient was seen and examined, she looks much better today, she is not short of breath anymore, does still have some mildly productive cough. Physical Exam Physical Exam: VITALS: Reviewed. WEIGHT/BMI reviewed. GEN: Healthy appearing, well-developed, NAD, in mild respiratory distress with tachypnea CV: RRR, no m/r/g. LUNGS: Scattered bilateral rhonchi, and crackles ABD: Soft, NT/ND, NBS, no masses or organomegaly. EXT: No clubbing, cyanosis, or edema. NEURO: Ambulating with no limitations. Normal muscle strength and tone. No focal deficits. Results & Data Results & Data Vital Signs (Past 12 Hours) Vital Signs Temp Pulse Resp BP Pulse Ox O2 Del Method O2 Flow Rate 01/29/24 08:35 94 Room Air 01/29/24 08:15 98 Nasal Cannula 2 01/29/24 07:45 36.4 C L 74 16 138/68 100 Nasal Cannula 4 01/29/24 00:45 152/56 H 01/28/24 22:39 Nasal Cannula 4 Laboratory Results Laboratory Results - last 24 hr 01/28/24 01/28/24 01/29/24 09:56 12:10 05:59 WBC 11.65 H RBC 3.34 L Hgb 10.5 L Hct 31.2 L MCV 93.4 MCH 31.4 MCHC 33.7 RDW Std Deviation 41.9 RDW Coeff of Terrence 12.2 Plt Count 186 MPV 9.1 L Sodium 135 L Potassium 3.9 Chloride 101 Carbon Dioxide 28 Anion Gap 6 BUN 16 Creatinine 0.45 L Est Cr Clr Drug Dosing 116.7 eGFR 102.79 BUN/Creatinine Ratio 35.6 H Glucose 107 H Calcium 9.1 Magnesium 1.5 L 1.7 Urine Color Yellow Urine Appearance Clear Urine pH 6.0 Ur Specific [place] 1.011 Urine Protein Negative Urine Glucose (UA) Negative Urine Ketones Negative Urine Blood 1+ H Urine Nitrite Positive A Urine Bilirubin Negative Urine Urobilinogen Negative Ur Leukocyte Esterase Negative Urine WBC (Auto) 0-5 Urine RBC (Auto) 0-2 U Hyaline Cast (Auto) 0-2 U Epithel Cells (Auto) 0-2 Urine Bacteria (Auto) 3+ H Urine Osmolality 340 L Urine Sodium 67 Urine Potassium 25.1 Urine Chloride [address] 01/28/24 06:47 CT hip LT wo con CLINICAL HISTORY: Left hip pain. Evaluate for fracture. COMPARISON STUDY: Left hip radiographs performed earlier today. TECHNIQUE: Axial images of the left hip were obtained without IV contrast. Sagittal and coronal reformats were viewed. Automated exposure control was utilized for the study. A dose lowering technique was utilized adhering to the principles of ALARA. FINDINGS: Severe left hip joint space narrowing is noted with extensive subchondral sclerosis, osteophytosis and cystic change within the acetabulum and the left femoral head. There are no fractures within the left hip. Possible fractures on radiographs were artifactual. No osseous lesions are identified. There is no evidence for avascular necrosis. No acute fractures are identified within visualized portions of the left hemipelvis. No intramuscular hematoma within the left hip is identified. Visualized portions of the left hemipelvis demonstrate colonic diverticulosis. IMPRESSION: 1. Severe left hip osteoarthritis with joint space narrowing, osteophytosis, subchondral sclerosis/cystic change. 2. No fractures within the left hip. The possible fractures on left hip radiographs were artifactual. ACT 112: Negative or not required by law. Electronically signed by: Efrain Boucher M.D. 01/28/2024 8:52 AM Medications Administered Current Inpatient Medications Acetaminophen (Acetaminophen 325 Mg Tab) 650 mg PO Q4H PRN PRN Reason: pain/fever Stop: 02/27/24 13:33 Albuterol (Albuterol 0.083% Nebu Soln 3 Ml Vial) 2.5 mg NEB Q6H PRN; Protocol PRN Reason: Shortness Of Breath Or Wheezing Stop: 02/27/24 09:42 Atorvastatin Calcium (Atorvastatin 40 Mg Tab) 40 mg PO HS [facility] Stop: 02/27/24 20:59 Last Admin: 01/28/24 20:52 Dose: 40 mg Buspirone HCl (Buspirone 15 Mg Tab) 15 mg PO QAM [facility] Stop: 02/27/24 09:59 Last Admin: 01/29/24 08:16 Dose: 15 mg Duloxetine HCl (Duloxetine Hcl 60 Mg Cap) 60 mg PO QAM [facility] Stop: 02/27/24 09:59 Last Admin: 01/29/24 08:16 Dose: 60 mg Enoxaparin Sodium (Enoxaparin Inj 40 Mg/0.4 Ml Syr) 40 mg SQ Q24H [facility] Stop: 02/27/24 13:59 Last Admin: 01/28/24 16:28 Dose: 40 mg Fenofibrate (Fenofibrate Nanocrystallized 145 Mg Tablet) 145 mg PO QAM [facility] Stop: 02/27/24 09:59 Last Admin: 01/29/24 08:16 Dose: 145 mg Guaifenesin (Guaifenesin 600 Mg Tabcr) 600 mg PO Q12 [facility] Stop: 02/27/24 20:59 Last Admin: 01/29/24 08:16 Dose: 600 mg Dexamethasone 6 mg/ Syringe 1.5 mls @ 1 mls/min IV DAILY [facility] Stop: 02/27/24 10:14 Last Admin: 01/29/24 08:36 Dose: 1 mls/min Levothyroxine Sodium (Levothyroxine Sodium 50 Mcg Tablet) 50 mcg PO DAILYBB [facility] Stop: 02/28/24 06:29 Last Admin: 01/29/24 05:27 Dose: 50 mcg Losartan Potassium (Losartan Potassium 25 Mg Tab) 25 mg PO QAM [facility] Stop: 02/27/24 09:59 Last Admin: 01/29/24 08:16 Dose: 25 mg Magnesium Hydroxide (Magnesium Hydroxide Susp 30 Ml Udc) 30 ml PO Q6H PRN PRN Reason: Constipation Stop: 02/27/24 13:33 Magnesium Oxide (Magnesium Oxide 400 Mg Tab) 400 mg PO BID [facility] Stop: 02/27/24 20:59 Last Admin: 01/29/24 08:16 Dose: 400 mg Ondansetron HCl (Ondansetron Inj 2 Mg/Ml 2 Ml Vial) 4 mg IV Q6H PRN PRN Reason: Nausea Stop: 02/27/24 13:33 (6) Hyperlipidemia Hyperlipidemia type: mixed hyperlipidemia Qualified Code(s): E78.2 - Mixed hyperlipidemia (8) Depression Depression Type: major depressive disorder Major depression recurrence: unspecified whether recurrent Active/Remission status: in remission of unspecified degree Qualified Code(s): F32.5 - Major depressive disorder, single episode, in full remission
[2024-01-29] MEDS ORDERED: HYDROCODONE/ACETAMINOPHEN 7.5/325MG TAB PO PRN (08:46)
[2024-01-29] MEDS: METOPROLOL SUCC 50MG EXT REL TAB PO SCH (10:14)
[2024-01-29] MEDS: GABAPENTIN 300 MG CAP PO SCH (10:14)
[2024-01-29] MEDS: OXYBUTYNIN CHLORIDE XL 5 MG TABCR PO SCH (10:15)
[2024-01-29] MEDS: CALCIUM CARBONATE 500 MG CHEWABLE TAB PO PRN (17:08)
--- NOTE | 2024-01-29 22:43 | Electrocardiogram Report ---
Test Reason : Blood Pressure : */* mmHG Vent. Rate : 132 BPM Atrial Rate : 132 BPM P-R Int : 134 ms QRS Dur : 80 ms QT Int : 290 ms P-R-T Axes : 100 65 53 degrees QTcB Int : 429 ms Poor data quality, interpretation may be adversely affected Sinus tachycardia Nonspecific ST and T wave abnormality Abnormal ECG No previous ECGs available Confirmed by Sander Massey ([id number]) on 01/29/2024 10:43:06 PM Referred By: REFERRED SELF Confirmed By: Sander Massey
[2024-01-30 07:08] LABS: Albumin Globulin Ratio 1.1 (0.9-2); Albumin Level 3.6 gm/dl (3.4-5.0); Bilirubin,Total 0.4 mg/dl (0.2-1.0); Calcium 9.2 mg/dl (8.6-10.3); Creatinine Clr Calc Pharmacy 109.4 ml/min; Globulin 3.2 gm/dl (2.5-4.0); Potassium 4.1 mmol/L (3.5-5.1); Total Protein 6.8 gm/dl (6.0-8.3)
[2024-01-30 07:51] VITALS: BP 149/76; PULSE 71; RESP 17; TEMP 97.9; O2SAT 93
--- NOTE | 2024-01-30 08:37 | Discharge Summary ---
Discharge Summary Date of Service January 30, 2024 Principal Dx & Hospital Course #1 = Principal Diagnosis (1) Acute bronchitis due to COVID-19 virus: (2) Hyponatremia: (3) Hypokalemia: (4) Hypomagnesemia: (5) Hypertension, essential: (6) Hyperlipidemia: (7) Hypothyroidism, acquired: (8) Depression: Notes For Next Care Provider Medication Changes From Visit Decadron 6 mg daily for 7 days Mucinex 1200 mg twice daily for 7 days. Admission HPI Per Admitting Provider Patient is a 73-year-old female with a history of anxiety/depression, hyperlipidemia, hypothyroidism, hypertension who came to the hospital because of gradually becoming sick after being exposed to several ill relatives. She started developing feeling tired about a week ago but then since 2 to 3 days ago she started having mildly productive cough which did not go away, she did not report having any fever or chills. Eventually she ended up coming to the hospital for further evaluation, she was found to be positive for COVID-19, chest x-ray did not show any significant infiltrate, patient was not hypoxic but she was tachypneic. Patient had multiple electrolyte abnormalities including hyponatremia, hypomagnesemia and hypokalemia, patient was decided to be admitted for further evaluation and treatment. Patient was treated with Decadron and bronchodilator treatment and Mucinex, gradually she improved, her respiratory distress resolved,She continues to have some cough which requires mucolytic's to be continued. Patient was seen and examined today, she is off oxygen and looks much better today. We agreed on usual plan of discharging her home on the remainder course of steroid. Patient was told that she may continue to have mildly productive cough for another 1 to 2 weeks. She otherwise seems to be stable for discharge. Discharge Exam VITALS: Reviewed. WEIGHT/BMI reviewed. GEN: Healthy appearing, well-developed, NAD. CV: RRR, no m/r/g. LUNGS: CTAB, no w/r/c. ABD: Soft, NT/ND, NBS, no masses or organomegaly. : N/A SKIN: Warm, well perfused. No skin rashes or abnormal lesions. Updated Medication List Medication Instructions Recorded Confirmed Type atorvastatin 40 mg tablet 40 mg PO DAILY 01/28/24 01/28/24 History buspirone 15 mg tablet 15 mg PO BID 01/28/24 01/28/24 History duloxetine 60 mg capsule,delayed 60 mg PO DAILY 01/28/24 01/28/24 History release famotidine 10 mg tablet (Heartburn 10 mg PO BID 01/28/24 01/28/24 History Relief (famotidine)) fenofibrate nanocrystallized 145 145 mg PO DAILY 01/28/24 01/28/24 History mg tablet gabapentin 300 mg capsule 300 mg PO TID 01/28/24 01/28/24 History hydrochlorothiazide 12.5 mg tablet 12.5 mg PO DAILY 01/28/24 01/28/24 History hydrocodone 7.5 mg-acetaminophen 1 tab PO QID PRN Pain 01/28/24 01/28/24 History 325 mg tablet levothyroxine 50 mcg tablet 50 mcg PO UD 01/28/24 01/28/24 History losartan 25 mg tablet 25 mg PO DAILY 01/28/24 01/28/24 History magnesium oxide 400 mg (241.3 mg 400 mg PO DAILY 01/28/24 01/28/24 History magnesium) tablet methylprednisolone 4 mg tablets in 4 mg PO UD 01/28/24 01/28/24 History a dose pack metoprolol succinate 50 mg 50 mg PO BID 01/28/24 01/28/24 History tablet,extended release 24 hr oxybutynin chloride 10 mg 10 mg PO DAILY 01/28/24 01/28/24 History tablet,extended release 24 hr dexamethasone 6 mg tablet 6 mg PO DAILY #7 tabs 01/30/24 Rx guaifenesin 1,200 mg tablet, 1,200 mg PO BID PRN cough #14 tabs 01/30/24 Rx extended release 12 hr (Mucinex) magnesium oxide 400 mg PO BID #14 caps 01/30/24 Rx Hospital Stay Data Consultations 01/28/24 06:49 ED Decision to Admit Stat Diagnostic Imagining Performed 01/28/24 06:47 CT hip LT wo con Urgent Pending Results Patient Have Any Pending Studies at Discharge: No Discharge Instructions Given to Patient (Per Discharging Provider) Complete the course of Decadron for the remainder of treatment course Total Time Total Time Spent Total Time Spent (In Minutes): More than 35-minute
== END 2024-01-30 16:13 | disposition home or self-care (01) | DRG 178 ==
LOC: ED 05:03 → EDINP 09:33 → 3E 13:34